=== PATIENT | female | born 1980 | race Caucasian/White ===

== ENCOUNTER 2016-04-17 15:01 | Emergency (ER) | payer MEDICAID ==
[~2016-04-17] VITALS: Wt 58.0 kg
[~2016-04-17 15:01] MED LIST: ACET500C5 PO; PREN1TAB49
[2016-04-17 16:30] LABS: ADD UMIC YES; URINE BILIRUBIN (Dip) NEGATIVE (NEGATIVE); URINE BLOOD (Dip) NEGATIVE (NEGATIVE); URINE COLOR LT. YELLOW (YELLOW); URINE GLUCOSE (Dip) NEGATIVE (NEGATIVE); URINE KETONES (Dip) NEGATIVE (NEGATIVE); URINE LEUKOCYTE ESTERASE (Dip) 1+ (NEGATIVE); URINE NITRITE (Dip) NEGATIVE (NEGATIVE); URINE TOTAL PROTEIN (Dip) NEGATIVE (NEGATIVE); URINE UROBILINOGEN (Dip) 0.2 E.U./dL (0.1-1.0)
[2016-04-17] MEDS ORDERED: METOCLOPRAMIDE 10 MG INJ IV ONE (16:30)
[2016-04-17] MEDS ORDERED: DIPHENHYDRAMINE 50 MG INJ IV ONE (16:30)
[2016-04-17 16:53] LABS: BACTERIA,URINE MANY; SQUAMOUS EPITHELIAL CELL,UR MODERATE; URINE RBCS NONE SEEN /HPF (0)
[2016-04-17] MEDS ORDERED: NITR-58 PO (16:57)
[2016-04-17] MEDS ORDERED: NAPR-260 PO (16:57)
--- NOTE | 2016-04-17 17:07 | ERD ---
ER Documentation Chief Complaint Date/Time DATE: 04/17/16 TIME: 17:04 Chief Complaint L SIDE BODY PAIN NO NEURO DEFICIT. NO TRAUMA PER PT HPI This is a 35-year-old female presenting to emergency room complaining of left- sided body pain in her leg and left arm since Thursday. Patient states that she has a headache rating it 8 out of 10. She admits to having nausea, photophobia. Patient denies any fevers. She states that she tried aspirin earlier today without any relief. She denies any abdominal pain. She denies any chest pain or shortness of breath ROS All systems reviewed and are negative except as per history of present illness. Medications Home Meds Active Scripts Naproxen* (Naprosyn*) 500 Mg Tablet, 500 MG PO BID Y for PAIN AND/OR INFLAMMATION, #30 TAB Prov:CLAUDINE MONCADA PA-C 04/17/16 Nitrofurantoin Monohyd Macrocr* (Macrobid*) 100 Mg Capsr, 100 MG PO BID for 7 Days, CAP Prov:CLAUDINE MONCADA PA-C 04/17/16 Acetaminophen* (Tylophen*) 500 Mg Capsule, 1 CAP PO Q6H Y for PAIN AND OR ELEVATED TEMP, #30 CAP Prov:CLAUDINE MONCADA PA-C 07/30/15 Reported Medications Vits W-Ca,Fe,Fa(<1MG) () 1 Tab Tablet 06/10/12 Allergies Allergies: Coded Allergies: No Known Allergy (Unverified , 06/10/12) PMhx/Soc History of Surgery: No Anesthesia Reaction: No Hx Neurological Disorder: No Hx Respiratory Disorders: No Hx Cardiac Disorders: No Hx Psychiatric Problems: No Hx Miscellaneous Medical Probl: No Hx Alcohol Use: No Hx Substance Use: No Hx Tobacco Use: No Smoking Status: Never smoker Physical Exam Vitals Vital Signs Date Time Temp Pulse Resp B/P Pulse Ox O2 Delivery O2 Flow Rate FiO2 04/17/16 15:09 98.6 87 20 131/83 97 Physical Exam GENERAL: well-developed/well-nourished, in no apparent distress, non-toxic appearing HENT: NC/AT, bilateral tympanic membrane is normal with good cone of light, nares patent, oropharynx clear without exudates EYES: Conjunctiva normal, PERRLA, EOMI, no nystagmus noted NECK: Supple, no lymphadenopathy PULM: CTA bilaterally, no rales, rhonchi, or wheezing heard CV: Normal S1S2, RRR, good capillary refill GI: Soft, non-distended, normal bowel sounds, non-tender BACK: No midline tenderness, no masses, No CVAT EXT: No clubbing, cyanosis, or edema NEURO: Alert and orientated to person, place, and time. CN II-IIX intact. Gait and coordination were normal. Hand user interface artist strength were equal and within normal limits SKIN: Intact, normal turgor PSYCH: Normal mood and mentation, patient denied SI Results 24 hrs Laboratory Tests Test 04/17/16 16:10 Urine Amorphous Phosphates MANY Urine Bacteria MANY Urine Bilirubin NEGATIVE Urine Clarity CLOUDY Urine Color LT. YELLOW Urine Glucose NEGATIVE% Urine Hemoglobin NEGATIVE Urine Ketones NEGATIVE Urine Leukocyte Esterase 1+ Urine Microscopic RBC NONE SEEN/HPF Urine Microscopic WBC 2-5/HPF Urine Nitrite NEGATIVE Urine Specific [place] 1.015 Urine Squamous Epithelial Cells MODERATE Urine Total Protein NEGATIVE Urine Urobilinogen 0.2 E.U./dL Urine pH 8.5 Current Medications Medications (Trade) Dose Ordered Sig/Zak Route PRN Reason Start Time Stop Time Status Last Admin Dose Admin Diphenhydramine HCl (Benadryl) 50 mg ONCE ONCE IV 04/17/16 16:30 04/17/16 16:31 DC 04/17/16 16:19 Metoclopramide HCl (Reglan) 10 mg ONCE ONCE IV 04/17/16 16:30 04/17/16 16:31 DC 04/17/16 16:19 Procedures/MDM This is a 35-year-old female presenting to the emergency room complaining of headache and left-sided body pain and headache since Thursday. My differential diagnoses include tension, migraine, and cluster headache, overuse medication headache, subarachnoid hemorrhage, meningitis, stroke. IV access is established , patient was given 1 L fluids and pain relief Benadryl and Reglan was given in the ED with some improvement. Neurology exam was normal and I don't recommend a CT scan at this time. A urinalysis was done in the ED and patient had a positive urinary tract infection. DISPOSITION: hemodynamically stable and neurovascularly intact. Prescriptions Macrobid and naproxen were given. Discussed to follow up with a primary care physician in the next couple days. Return to the ER if condition worsens or not improving as expected. Patient agreed and understood this plan. EKG: read and signed off by myself and Dr. Warren Rate/Rhythm: [Normal Sinus Rhythm 87 bpm] QRS, ST, T-waves: [No changes consistent w/ acute ischemia] Impression: [No evidence of ischemia or arrhythmia] Departure Diagnosis: Primary Impression: UTI (urinary tract infection) Urinary tract infection type: acute cystitis Hematuria presence: with hematuria Qualified Code: N30.01 - Acute cystitis with hematuria Additional Impression: Headache Headache type: unspecified Headache chronicity pattern: acute headache Intractability: not intractable Qualified Code: R51 - Acute nonintractable headache, unspecified headache type Condition: Stable Patient Instructions: Understanding Urinary Tract Infections (UTIs), Self-Care for Headaches Additional Instructions: Visite a myers ling shields para un EXAMEN.Regrese a estas instalaciones si no se mejora dino esperbamos o dino le dijimos. Gu-Win toda la medicina shalini y dino se le indic. Regrese a estas instalaciones si no se mejora dino esperbamos o dino le dijimos. CLAUDINE MONCADA PA-C Apr 17, 2016 17:07
[2016-04-17 17:18] VITALS: BP 118/56; PULSE 69; RESP 18; TEMP 98.6
== END 2016-04-17 17:24 | disposition home or self-care (01) ==
LOC: FTE 15:01
DX: N30.01 Acute cystitis with hematuria (principal); M79.602 Pain in left arm
CPT/HCPCS: 81001; 93005; 96374; 96375; J1200; J2765; Z7502; 81003

== ENCOUNTER 2016-12-15 13:20 | Emergency (ER) | payer MEDICAID ==
[~2016-12-15] VITALS: Ht 152.4 cm; Wt 57.5 kg
[~2016-12-15 13:20] MED LIST changes: +NAPR-260 PO; +NITR-58 PO
[2016-12-15 13:22] VITALS: Ht 152.4 cm; Wt 57.5 kg
[2016-12-15] MEDS ORDERED: ACETAMINOPHEN 500 MG TAB PO STA (15:26)
[2016-12-15 15:54] LABS: URINE BLOOD (Dip) POC Negative (NEGATIVE)
--- NOTE | 2016-12-15 15:55 | ERD ---
ER Documentation Chief Complaint Date/Time DATE: 12/15/16 TIME: 15:52 Chief Complaint Pt present with HOWARD and dizziness x 2 weeks. HPI Patient is a 36-year-old female who presents to the ED with headache and dizziness on and off for the last 2 weeks. She states that she has been very stressed out. She states that a family member and she has been stressed and occasionally develops headache neck pain and dizziness. She denies stating that this is the worst headache of her life. She states that the pain comes and goes. At this moment she does not have headache or dizziness. She denies abdominal pain, nausea, vomiting or diarrhea. She denies trauma or falls. She denies blurry vision. She is able to move her neck without difficulty. No other complaints. ROS All systems reviewed and are negative except as per history of present illness. Medications Home Meds Active Scripts Acetaminophen* (Tylophen*) 500 Mg Capsule, 1 CAP PO Q6H Y for PAIN AND OR ELEVATED TEMP, #20 CAP Prov:NURY CHRISTIANSEN PA-C 12/15/16 Naproxen* (Naprosyn*) 500 Mg Tablet, 500 MG PO BID Y for PAIN AND/OR INFLAMMATION, #30 TAB Prov:CLAUDINE MONCADA PA-C 04/17/16 Nitrofurantoin Monohyd Macrocr* (Macrobid*) 100 Mg Capsr, 100 MG PO BID for 7 Days, CAP Prov:CLAUDINE MONCADA PA-C 04/17/16 Acetaminophen* (Tylophen*) 500 Mg Capsule, 1 CAP PO Q6H Y for PAIN AND OR ELEVATED TEMP, #30 CAP Prov:CLAUDINE MONCADA PA-C 07/30/15 Reported Medications Vits W-Ca,Fe,Fa(<1MG) () 1 Tab Tablet 06/10/12 Allergies Allergies: Coded Allergies: No Known Allergy (Unverified , 06/10/12) PMhx/Soc History of Surgery: No Anesthesia Reaction: No Hx Neurological Disorder: No Hx Respiratory Disorders: No Hx Cardiac Disorders: No Hx Psychiatric Problems: No Hx Miscellaneous Medical Probl: No Hx Alcohol Use: No Hx Substance Use: No Hx Tobacco Use: No Smoking Status: Never smoker Physical Exam Vitals Vital Signs Date Time Temp Pulse Resp B/P Pulse Ox O2 Delivery O2 Flow Rate FiO2 12/15/16 16:45 98.2 84 18 134/80 98 Room Air 12/15/16 13:22 98.1 90 18 141/85 98 Physical Exam GENERAL: Well-developed, well-nourished female. Appears in no acute distress. HEAD: Normocephalic, atraumatic. EYES: Pupils are equally reactive bilaterally. EOMs grossly intact. No conjunctival erythema. ENT: Moist mucous membranes. No uvula deviation. No kissing tonsils. No exudates. NECK: Supple. No lymphadenopathy or thyromegaly. No meningismus. negative kernig. negative brudinski. LUNG: Clear to auscultation bilaterally. No rhonchi, wheezing, rales or coarse breath sounds. HEART: Regular rate and rhythm. No murmurs, rubs or gallops. ABDOMEN: No scars, ecchymosis or rashes noted. Soft, nontender, and nondistended. Positive bowel sounds in all four quadrants. No rebound tenderness , no guarding. (-) McBurneys point tenderness. No CVA tenderness. BACK: No midline tenderness. Extremities: Equal pulses bilaterally. No peripheral clubbing, cyanosis or edema. No unilateral leg swelling. NEUROLOGIC: Alert and oriented. Moving all four extremities. 5/5 strength in all extremities. Normal speech. Steady gait. Cranial nerves II through XII intact. No ataxia. Negative Romberg SKIN: Normal color. Warm and dry. No rashes or lesions. Capillary refill < 2 seconds Results 24 hrs Laboratory Tests Test 12/15/16 16:01 Bedside Urine pH (LAB) 8.0 Bedside Urine Protein (LAB) Trace Bedside Urine Glucose (UA) Negative Bedside Urine Ketones (LAB) Negative Bedside Urine Blood Negative Bedside Urine Nitrite (LAB) Negative Bedside Urine Leukocyte Esterase (L Negative Current Medications Medications (Trade) Dose Ordered Sig/Zak Route PRN Reason Start Time Stop Time Status Last Admin Dose Admin Acetaminophen (Tylenol Tab) 500 mg ONCE STAT PO 12/15/16 15:26 12/15/16 15:28 DC 12/15/16 15:44 Procedures/MDM ER COURSE: I kept the patient and/or family informed of laboratory and diagnostic imaging results throughout the emergency room course. MEDICAL DECISION MAKING: This is a 36-year-old female who presents with headache, dizziness, neck pain on and off x 2 weeks.. Vital signs were reviewed. Patient is afebrile. Patient is not hypoxic. Patient is nontoxic or ill-appearing.Patient examination with her normal limits. Patient has headache of unknown etiology likely stress related. At this point the risks outweigh the benefits for a CT scan. Patient' s headache is not the worst headache she has ever had and she does not have headache here in the ED. Patient refused CT scan. Low suspicion for intracranial hemorrhage, meningitis, intracranial mass, concussion, temporal arteritis, stroke, elevated intracranial pressure, seizure. DISCHARGE: At this time, patient is stable for discharge and outpatient management with no new complaints during the ER course. Patient was sent home with ibuprofen and to follow-up with primary care provider patient will be discharged home with instructions to recheck for new or worsening symptoms such as fever, nausea, weakness, LOC and to follow up with primary care in the next 1-2 days. Patient was advised to return to the ER for any new or worsening symptoms. Plan was discussed and patient and/or family understands and agrees. Home instructions were given. Departure Diagnosis: Primary Impression: Headache Headache type: unspecified Headache chronicity pattern: acute headache Intractability: not intractable Qualified Code: R51 - Acute nonintractable headache, unspecified headache type Condition: Stable NURY CHRISTIANSEN PA-C Dec 15, 2016 15:55
[2016-12-15] MEDS ORDERED: ACET500C5 PO (16:31)
[2016-12-15 16:45] VITALS: BP 134/80; PULSE 84; RESP 18; TEMP 98.2
== END 2016-12-15 16:45 | disposition home or self-care (01) ==
LOC: FTE 13:20
DX: R51 Headache (principal)
CPT/HCPCS: 81003; Z7502; Z7610; 99283

== ENCOUNTER 2017-03-31 15:48 | Emergency (ER) | END 2017-03-31 18:49 | disposition home or self-care (01) ==

== ENCOUNTER 2017-05-17 16:34 | Outpatient (CLI) | END 2017-05-17 18:50 | disposition home or self-care (01) ==

== ENCOUNTER 2018-02-15 22:31 | Emergency (ER) | END 2018-02-16 00:28 | disposition home or self-care (01) ==